=== PATIENT | male | born 1995 | race African-American/Black ===

== ENCOUNTER 2018-02-28 07:53 | Emergency (ER) | payer SELFPAY ==
[~2018-02-28] VITALS: Ht 180.3 cm; Wt 56.6 kg
[2018-02-28 08:12] VITALS: BP 122/69
[2018-02-28] MEDS ORDERED: PENICILLIN G BENZATHINE 1,200,000 UNITS/2ML SYR IM ONE (10:30)
== END 2018-02-28 11:04 | disposition home or self-care (01) ==
LOC: ER 07:53
DX: J02.0 Streptococcal pharyngitis (principal); B95.5 Unspecified streptococcus as the cause of diseases classified elsewhere; J45.909 Unspecified asthma, uncomplicated
CPT/HCPCS: 87430; 96372; 99283; J0561